=== PATIENT | female | born 1990 | race Caucasian/White ===

== ENCOUNTER → 2016-05-22 | Outpatient (REF) | payer OTHER ==
[~2016-05-22] MED LIST: ACET50TA PO; COLA100C PO; IBUP60TA PO; KEFL500C7 PO; MILKSUS PO; PERC5TAB6 PO; PERCOCET PO; PRE-TAB3 PO; RANITAB PO
== END ==
LOC: M LAB REF 09:16
PROVIDERS: ATTEND Physician Assistant
DX: J01.90 Acute sinusitis, unspecified (principal); J02.9 Acute pharyngitis, unspecified

== ENCOUNTER → 2016-08-09 | Outpatient (REF) | payer OTHER | LOC: M LAB REF 17:04 | PROVIDERS: ATTEND Advanced Practice Midwife | DX: Z12.4 Encounter for screening for malignant neoplasm of cervix (principal) ==

== ENCOUNTER → 2017-09-23 | Outpatient (CLI) | payer OTHER | LOC: M RAD 19:54 | DX: M54.14 Radiculopathy, thoracic region (principal) | CPT/HCPCS: 72072 ==

== ENCOUNTER → 2018-01-19 | Outpatient (CLI) | payer OTHER ==
[2018-01-19 17:37] LABS: BASO % 0.4 % (0.0-1.0); EOS # 0.1 10^3/uL (0.0-0.50); EOS % 0.9 % (0.0-3.0); HEMATOCRIT 37.1 % (36.0-47.0); HEMOGLOBIN 13.2 g/dl (12.0-15.5); IMMATURE GRANULOCYTE % 0.5 % (0-3.0); LYMPH # 1.7 10^3/uL (1.5-6.5); LYMPH % 21.4 % (24.0-44.0); MEAN CORPUSCULAR HEMOGLOBIN 31.1 pg (27.0-33.0); MEAN CORPUSCULAR HGB CONC 35.6 g/dl (32.0-36.5); MEAN CORPUSCULAR VOLUME 87.3 fl (80.0-96.0); MONO # 0.5 10^3/uL (0.0-0.8); MONO % 6.7 % (0.0-5.0); NEUTROPHILS # 5.6 10^3/uL (1.8-7.7); NEUTROPHILS % 70.1 % (36.0-66.0); PLATELET COUNT, AUTOMATED 180 10^3/uL (150-450); RED BLOOD COUNT 4.25 10^6/uL (4.00-5.40); RED CELL DISTRIBUTION WIDTH 11.7 % (11.5-14.5)
[2018-01-19 20:43] LABS: CHLAMYDIA DNA AMPLIFICATION NEGATIVE (NEGATIVE); GC DNA AMPLIFICATION NEGATIVE (NEGATIVE)
[2018-01-22 13:43] LABS: RUBELLA IgG QUALITATIVE IMMUNE (IMMUNE)
[2018-01-22 13:44] LABS: HBsAg Prenatal NEGATIVE (NEGATIVE)
[2018-01-22 14:08] LABS: HEPATITIS C VIRUS ABY INDEX 0.1 INDEX (<0.8)
[2018-01-24 18:29] LABS: HIV 1&2 SCREEN CENTAUR NEGATIVE (NEGATIVE)
== END ==
LOC: M WUC 15:19
DX: Z34.81 Encounter for supervision of other normal pregnancy, first trimester (principal); Z3A.08 8 weeks gestation of pregnancy
CPT/HCPCS: 86762

== ENCOUNTER → 2018-06-12 | Outpatient (REF) | payer OTHER ==
[~2018-06-12] MED LIST changes: -ACET50TA PO; -COLA100C PO; +COLA100C5 PO; +KEFL500C17 PO; -KEFL500C7 PO; +MAPA500T2 PO; +MILK120011 PO; -MILKSUS PO; +PERC5TAB12 PO; -PERC5TAB6 PO
[2018-06-12 15:07] LABS: APPEARANCE, URINE HAZY (CLEAR); BACTERIA, URINE AUTO NEGATIVE (NEGATIVE); BILIRUBIN, URINE AUTO NEGATIVE (NEGATIVE); BLOOD, URINE BLOOD NEGATIVE (NEGATIVE); COLOR, URINE YELLOW (YELLOW); GLUCOSE, URINE (UA) AUTO NEGATIVE (NEGATIVE); KETONE, URINE AUTO NEGATIVE (NEGATIVE); LEUKOCYTE ESTERASE, URINE AUTO 3+ (NEGATIVE); MUCUS, URINE SMALL (NEGATIVE); NITRITE, URINE AUTO NEGATIVE (NEGATIVE); PROTEIN, URINE AUTO NEGATIVE (NEGATIVE); RBC, URINE AUTO 0 /HPF (0-3); SPECIFIC GRAVITY URINE AUTO 1.013 (1.002-1.035); SQUAMOUS EPITHELIAL CELL UR AU 2 /HPF (0-6); UROBILINOGEN, URINE AUTO 0.2 mg/dL (0.0-2.0); WBC, URINE AUTO 1 /HPF (0-3)
== END ==
LOC: M LAB REF 13:40
PROVIDERS: ATTEND Obstetrics & Gynecology
DX: M54.5 Low back pain (principal)

== ENCOUNTER → 2018-07-19 | Outpatient (CLI) | payer OTHER ==
[~2018-07-19] MED LIST changes: +PANT20TA2 PO
--- NOTE | 2018-07-19 18:21 | REP ---
Clinical: Growth evaluation. Comparison: None . Findings: Examination demonstrates a single live intrauterine in cephalic presentation. motion is identified by technologist. Placenta is noted anterior and grade grade III without evidence for placenta previa or abruption. Amniotic fluid volume is normal. Cervix measures 3.5 cm in length and appears closed. No evidence for nuchal cord. Gestational age by LMP 35 weeks 5 days with REEMA 08/18/2018 . Gestational age by current measurements 38 weeks 6 days with RE[facility] 07/27/2018 . FHR equals 147 beats per minute. BPD 9.5 cm 38 weeks 4 days HC 34.1 cm 39 weeks 2 days AC 36.9 cm 40 weeks 6 days FL 7.4 cm 37 weeks 5 days HL 6.6 cm 38 weeks 1 day HC/AC ratio 0.92 Estimated weight 3871 grams ( greater than 97th percentile). Amniotic fluid index: 18.1 cm Umbilical cord SD ratio: 2.35 Impression: 1. Single live advanced gestation in cephalic presentation demonstrating greater than expected growth when compared to LMP. 2. Incidental small bilateral hydroceles may warrant ultrasound evaluation. Electronically Signed by Pancho Cespedes MD 07/19/2018 06:13 P
== END ==
LOC: M RAD 10:45
PROVIDERS: ATTEND Advanced Practice Midwife
DX: O26.843 Uterine size-date discrepancy, third trimester (principal); O24.410 Gestational diabetes mellitus in pregnancy, diet controlled; Z3A.38 38 weeks gestation of pregnancy

== ENCOUNTER → 2018-07-20 | Outpatient (REF) | payer OTHER | LOC: M LAB REF 16:55 | PROVIDERS: ATTEND Advanced Practice Midwife | DX: O24.410 Gestational diabetes mellitus in pregnancy, diet controlled (principal); Z3A.36 36 weeks gestation of pregnancy ==

== ENCOUNTER → 2018-07-24 | Outpatient (CLI) | payer OTHER ==
[~2018-07-24] MED LIST changes: +IBUP1TAB7 PO; +OXYC1TAB23 PO; +RANI15TA PO
== END ==
LOC: M WUC 16:32
PROVIDERS: ATTEND Advanced Practice Midwife
DX: O24.410 Gestational diabetes mellitus in pregnancy, diet controlled (principal); Z3A.36 36 weeks gestation of pregnancy

== ENCOUNTER 2018-08-03 05:19 | Inpatient (IN) | payer OTHER ==
[2018-08-03] VITALS (12 sets, daily range): BP systolic 103–126; BP diastolic 49–82
[~2018-08-03] VITALS: Ht 167.6 cm; Wt 95.5 kg
[~2018-08-03 05:19] MED LIST changes: -IBUP1TAB7 PO; -OXYC1TAB23 PO; -RANI15TA PO
[2018-08-03] MEDS ORDERED: RANI15TA PO (05:47)
[2018-08-03] MEDS ORDERED: BICITRA 30ML SOLN UDC PO ONE (06:00)
[2018-08-03] MEDS ORDERED: LR 800 ML IV ONE (06:00)
[2018-08-03 06:28] LABS: HEMOGLOBIN 11.8 g/dl (12.0-15.5); MEAN CORPUSCULAR HEMOGLOBIN 28.6 pg (27.0-33.0); MEAN CORPUSCULAR HGB CONC 33.7 g/dl (32.0-36.5); MEAN CORPUSCULAR VOLUME 84.7 fl (80.0-96.0); PLATELET COUNT, AUTOMATED 156 10^3/uL (150-450); RED BLOOD COUNT 4.13 10^6/uL (4.00-5.40); WHITE BLOOD COUNT 10.6 10^3/uL (4.0-10.0)
[2018-08-03] MEDS ORDERED: LR 1,000 ML IV SCH ×2 (07:00→09:15)
[2018-08-03] MEDS ORDERED: ONDANSETRON 4MG/2ML VIAL (J2405) As Ordered ONE (07:01)
[2018-08-03] MEDS ORDERED: BUPIVACAINE/DEXTROSE 0.75% 2 ML AMP As Ordered ONE (07:01)
[2018-08-03] MEDS ORDERED: MORPHINE PRES-FREE INJ 10 MG/10 ML VIAL (J2274) As Ordered ONE (07:02)
[2018-08-03] MEDS ORDERED: fentaNYL 100 MCG/2 ML INJECTION (J3010) As Ordered ONE (07:02)
[2018-08-03] MEDS ORDERED: OXYTOCIN INJ 10 UNITS/ML VIAL (J2590) As Ordered ONE (07:02)
[2018-08-03] MEDS ORDERED: KETOROLAC 60 MG/2 ML VIAL (J1885) As Ordered ONE (07:05)
[2018-08-03] MEDS ORDERED: diphenhydrAMINE INJ 50MG/ML VIAL (J1200) IV PRN (07:45)
[2018-08-03] MEDS ORDERED: NALOXONE INJ 0.4 MG/1 ML VIAL (J2310) IV PRN ×2 (07:45)
[2018-08-03] MEDS ORDERED: NALBUPHINE HCL 10 MG/ML AMP (J2300) IV PRN (07:45)
[2018-08-03] MEDS ORDERED: METOCLOPRAMIDE INJ 10MG/2ML VIAL (J2765) IV PRN (07:45)
[2018-08-03] MEDS ORDERED: ONDANSETRON 4MG/2ML VIAL (J2405) IV PRN ×3 (07:45→09:15)
[2018-08-03] MEDS ORDERED: ACETAMINOPHEN 1000MG 100ML IV BTL (OFIRMEV) (J0131 PER 10MG) As Ordered ONE (08:08)
[2018-08-03] MEDS ORDERED: OXYTOCIN DRIP 30 UNITS in APPROPRIATE DILUENT 1 EA IV SCH (08:47)
[2018-08-03] MEDS ORDERED: OXYC1TAB23 PO (08:55)
[2018-08-03] MEDS ORDERED: IBUP1TAB7 PO (08:56)
[2018-08-03] MEDS ORDERED: OXYTOCIN 30 UNITS IN 0.9% NaCl 500ML IV BAG (J2590) As Ordered ONE (08:59)
[2018-08-03] MEDS ORDERED: RHOGAM 300 MCG (1500 IU) INJ (J2790) IM SCH (09:00)
[2018-08-03] MEDS ORDERED: MEASLES,MUMPS,RUBELLA VACCINE INJ (MMR-II) (90707) SC SCH (09:00)
[2018-08-03] MEDS ORDERED: PERCOCET 5MG/325MG TAB PO PRN ×2 (09:00→09:15)
[2018-08-03] MEDS: PRENATAL VITAMINS CHEWABLE TABLET PO SCH (09:00)
[2018-08-03] MEDS ORDERED: fentaNYL 100 MCG/2 ML INJECTION (J3010) IV PRN (09:15)
--- NOTE | 2018-08-03 12:09 | RO ---
DATE OF PROCEDURE: 08/03/2018 PREPROCEDURE DIAGNOSIS: 38 and 1/7 weeks gestation, gestational diabetes, suspected macrosomia, undesired fertility. POSTPROCEDURE DIAGNOSIS: 38 and 1/7 weeks gestation, gestational diabetes, suspected macrosomia, undesired fertility. PROCEDURE: Primary low transverse section and bilateral tubal ligation. SURGEON: Dr. Chaim Aguilar ELECTRICAL AND RADIO MECHANIC: Dr. Sony Syed ANESTHESIA: Spinal. ESTIMATED BLOOD LOSS: 600 mL. IV FLUIDS: 1500 mL lactated Ringer's. URINE OUTPUT: 150 mL. FINDINGS: 4720 gram or 10 pound and 6 ounce male , Apgars 9 and 9, vertex position, nuchal cord times one. Normal uterus, fallopian tubes and ovaries. DESCRIPTION OF PROCEDURE: The patient was taken to the operating room where spinal anesthesia was induced. She was prepped and draped in sterile fashion in the supine position. A Cha catheter was placed. A Pfannenstiel skin incision was made with the scalpel and carried through to the fascia. The fascia was nicked and extended. The fascia was dissected off the rectus muscles. The rectus muscles were divided and the peritoneal cavity was entered. A bladder flap was created. A curvilinear incision was made in the lower uterine segment until bulging membranes were noted. This was extended manually. Membranes were ruptured with clear fluid noted. The was delivered from the vertex position with a single use of the vacuum extractor. Nuchal cord was reduced. The shoulders delivered with ease. The cord was doubly clamped and cut. The infant was handed off to the awaiting nurses. The placenta was expressed. The uterus was exteriorized and cleared of clots and debris. The uterine incision was closed with #0 Vicryl in a running locked fashion. A second imbricating layer of #0 Vicryl was placed. The uterus was placed back in the abdominal cavity. Attention was turned to the fallopian tubes. The fallopian tubes were grasped with the Linda clamp at their mid portion. A window was created in the broad ligament. A free tie #3-0 chromic was placed on either side of the [place] clamp. A knuckle of tube was excised bilaterally and sent to pathology. The uterus was placed back in the abdominal cavity. The peritoneum was closed with #2-0 Vicryl in a running locked fashion. The fascia was closed with #0 Vicryl in a running fashion. The deep layer was irrigated and closed with #2-0 chromic. The skin was closed with #4-0 Monocryl subcuticular suture. Sponge, needle and instrument counts were correct. Sony Syed DO, assisted with all aspects of the procedure from beginning to end. He helped create all layers the incision in the abdomen. He helped create the hysterotomy as well as expel the fetus. He subsequently helped closed all layers.
[2018-08-03] MEDS: LR 1,000 ML IV SCH ×2 (12:21→16:47)
[2018-08-03] MEDS: KETOROLAC 30 MG/ML VIAL (J1885) IV SCH ×2 (12:34→19:36)
[2018-08-03] MEDS: PERCOCET 5MG/325MG TAB PO PRN ×2 (14:21→21:27)
[2018-08-04] MEDS: KETOROLAC 30 MG/ML VIAL (J1885) IV SCH (00:21)
[2018-08-04 02:00] VITALS: BP 107/52
[2018-08-04 06:00] VITALS: BP 119/56
[2018-08-04 06:46] LABS: HEMATOCRIT 27.9 % (36.0-47.0); MEAN CORPUSCULAR HEMOGLOBIN 28.5 pg (27.0-33.0); MEAN CORPUSCULAR HGB CONC 33.7 g/dl (32.0-36.5); MEAN CORPUSCULAR VOLUME 84.5 fl (80.0-96.0); PLATELET COUNT, AUTOMATED 124 10^3/uL (150-450); WHITE BLOOD COUNT 8.8 10^3/uL (4.0-10.0)
[2018-08-04 06:58] LABS: HEMOGLOBIN 9.4 g/dl (12.0-15.5)
[2018-08-04] MEDS: PRENATAL VITAMINS CHEWABLE TABLET PO SCH (09:45)
[2018-08-04] MEDS: IBUPROFEN 800 MG TAB PO SCH ×2 (09:45→17:01)
[2018-08-04 10:27] VITALS: BP 110/54
[2018-08-04 14:24] VITALS: BP 120/58
[2018-08-04] MEDS: PERCOCET 5MG/325MG TAB PO PRN ×2 (14:32→22:23)
[2018-08-04] MEDS: DOCUSATE SODIUM 100 MG CAP PO PRN ×2 (17:03→17:11)
[2018-08-04 18:09] VITALS: BP 113/61
[2018-08-04 22:00] VITALS: BP 116/57
[2018-08-05] MEDS: IBUPROFEN 800 MG TAB PO SCH ×2 (01:01→08:03)
[2018-08-05 02:00] VITALS: BP 123/57
[2018-08-05 06:00] VITALS: BP 108/55
[2018-08-05] MEDS: PRENATAL VITAMINS CHEWABLE TABLET PO SCH (08:04)
--- NOTE | 2018-08-06 03:57 | DSES ---
DATE OF ADMISSION: 08/03/2018 DATE OF DISCHARGE: 08/05/2018 A 28-year-old (G) 2, para (P) 1 female at 38-1/7 weeks gestation presents for primary elective section due to suspected macrosomia and type A1 gestational diabetes mellitus. The patient had a shoulder dystocia with a prior large for gestational age baby and had a vaginal delivery. HOSPITAL COURSE: On 08/03/2018 the patient was admitted for a primary low transverse section and bilateral tubal ligation. The result was a 10 pounds, 6 ounce male . The procedure was without complication. POSTOPERATIVE COURSE: The postoperative course was unremarkable. She had adequate return of bladder and bowel function. Her postoperative hemoglobin is 9.6 g/deciliter. She is deemed stable for discharge on postoperative day number two. ADMISSION DIAGNOSES: 38 weeks, A1 gestational diabetes mellitus, macrosomia. DISCHARGE DIAGNOSIS: Delivered. PROCEDURE: Primary low transverse section and bilateral tubal ligation. DISPOSITION: The patient will follow up with Dr. Aguilar in two weeks. Instructions were reviewed.
== END 2018-08-05 11:10 | disposition home or self-care (01) | DRG 785 ==
LOC: M LDI 05:19 → M OBS 11:49
PROVIDERS: ADMIT Specialist; ATTEND Specialist
PROC: 0UB70ZZ Excision of Bilateral Fallopian Tubes, Open Approach (ICD-10-PCS; 2018-08-03)
PROC: 10D00Z1 Extraction of Products of Conception, Low, Open Approach (ICD-10-PCS; principal; 2018-08-03 07:30)
DX: O36.63X0 Maternal care for excessive fetal growth, third trimester, not applicable or unspecified (principal); Z3A.38 38 weeks gestation of pregnancy; O24.420 Gestational diabetes mellitus in childbirth, diet controlled; Z37.0 Single live birth; Z30.2 Encounter for sterilization

== ENCOUNTER → 2019-10-16 | Outpatient (CLI) | payer OTHER ==
[~2019-10-16] MED LIST changes: +IBUP1TAB7 PO; +IBUP600T42 PO; -IBUP60TA PO; +OXYC1TAB23 PO; +RANI15TA PO
[2019-10-16 10:01] LABS: BASO % 0.4 % (0.0-1.0); EOS % 0.7 % (0.0-3.0); HEMATOCRIT 43.5 % (36.0-47.0); HEMOGLOBIN 14.7 g/dl (12.0-15.5); LYMPH # 1.3 10^3/uL (1.5-5.0); LYMPH % 28.3 % (24.0-44.0); MEAN CORPUSCULAR HEMOGLOBIN 30.5 pg (27.0-33.0); MEAN CORPUSCULAR HGB CONC 33.8 g/dl (32.0-36.5); MEAN CORPUSCULAR VOLUME 90.2 fl (80.0-96.0); MONO # 0.4 10^3/uL (0.0-0.8); MONO % 9.5 % (0.0-5.0); NEUTROPHILS # 2.8 10^3/uL (1.5-8.5); NEUTROPHILS % 60.7 % (36.0-66.0); PLATELET COUNT, AUTOMATED 210 10^3/uL (150-450); RED BLOOD COUNT 4.82 10^6/uL (4.00-5.40); WHITE BLOOD COUNT 4.5 10^3/uL (4.0-10.0)
[2019-10-16 10:04] LABS: AMORPHOUS SEDIMENT MODERATE (NEGATIVE); APPEARANCE, URINE CLOUDY (CLEAR); BACTERIA, URINE AUTO NEGATIVE (NEGATIVE); BILIRUBIN, URINE AUTO NEGATIVE (NEGATIVE); BLOOD, URINE BLOOD 3+ (NEGATIVE); COLOR, URINE AMBER (YELLOW); GLUCOSE, URINE (UA) AUTO NEGATIVE (NEGATIVE); KETONE, URINE AUTO NEGATIVE (NEGATIVE); LEUKOCYTE ESTERASE, URINE AUTO NEGATIVE (NEGATIVE); NITRITE, URINE AUTO NEGATIVE (NEGATIVE); PROTEIN, URINE AUTO NEGATIVE (NEGATIVE); RBC, URINE AUTO TNTC /HPF (0-3); SPECIFIC GRAVITY URINE AUTO 1.011 (1.002-1.035); SQUAMOUS EPITHELIAL CELL UR AU 0 /HPF (0-6); UROBILINOGEN, URINE AUTO 0.2 mg/dL (0.0-2.0); WBC, URINE AUTO 0 /HPF (0-3)
[2019-10-16 10:42] LABS: ALBUMIN 4.3 GM/DL (3.2-5.2); ALT/SGPT 29 U/L (12-78); BILIRUBIN,TOTAL 0.9 MG/DL (0.2-1.0); BLOOD UREA NITROGEN 16 MG/DL (7-18); CALCIUM LEVEL 9.4 MG/DL (8.5-10.1); CARBON DIOXIDE LEVEL 29 MEQ/L (21-32); CHLORIDE LEVEL 103 MEQ/L (98-107); CREATININE FOR GFR 0.62 MG/DL (0.55-1.30); GLOMERULAR FILTRATION RATE > 60.0 (>60); GLUCOSE, FASTING 86 MG/DL (70-100); POTASSIUM SERUM 4.4 MEQ/L (3.5-5.1); SODIUM LEVEL 139 MEQ/L (136-145); TOTAL PROTEIN 7.3 GM/DL (6.4-8.2)
== END ==
LOC: M LAB 09:09
PROVIDERS: ATTEND Family Medicine
DX: R10.12 Left upper quadrant pain (principal)

== ENCOUNTER → 2019-11-04 | Outpatient (REF) | payer OTHER ==
[2019-11-04 19:02] LABS: APPEARANCE, URINE CLEAR (CLEAR); BACTERIA, URINE AUTO NEGATIVE (NEGATIVE); BILIRUBIN, URINE AUTO NEGATIVE (NEGATIVE); BLOOD, URINE BLOOD NEGATIVE (NEGATIVE); COLOR, URINE STRAW (YELLOW); GLUCOSE, URINE (UA) AUTO NEGATIVE (NEGATIVE); KETONE, URINE AUTO NEGATIVE (NEGATIVE); LEUKOCYTE ESTERASE, URINE AUTO TRACE (NEGATIVE); MUCUS, URINE SMALL (NEGATIVE); NITRITE, URINE AUTO NEGATIVE (NEGATIVE); PROTEIN, URINE AUTO NEGATIVE (NEGATIVE); RBC, URINE AUTO 0 /HPF (0-3); SPECIFIC GRAVITY URINE AUTO 1.006 (1.002-1.035); SQUAMOUS EPITHELIAL CELL UR AU 0 /HPF (0-6); UROBILINOGEN, URINE AUTO 0.2 mg/dL (0.0-2.0); WBC, URINE AUTO 0 /HPF (0-3)
== END ==
LOC: M SMT 16:38
PROVIDERS: ATTEND Nurse Practitioner Women's Health
DX: N20.0 Calculus of kidney (principal)

== ENCOUNTER → 2019-12-20 | Outpatient (CLI) | payer OTHER ==
[~2019-12-20] MED LIST changes: -PANT20TA2 PO; +PANT20TA6 PO
--- NOTE | 2020-02-07 09:55 | REP ---
PELVIC ULTRASOUND HISTORY: Left lower quadrant pain. TECHNIQUE: Real-time sonographic evaluation of pelvis performed utilizing transabdominal and endovaginal technique. FINDINGS: Bladder measures 14.9 x 6.5 x 10.3 cm. Uterus measures 10.1 x 4.1 x 5.6 cm. Endometrial thickness is 16 mm. No endometrial fluid collection is seen. Ovaries appear normal in size and echotexture. Right ovary measuring 3.7 x 2.3 x 1.8 cm and the left ovary 2.8 x 1.9 x 2.3 cm. Normal size follicles are seen in each ovary with no evidence of adnexal mass or free fluid. There is no evidence of ovarian torsion with duplex Doppler evaluation. IMPRESSION: Unremarkable pelvic ultrasound MTDD
== END ==
LOC: M RAD 15:30
PROVIDERS: ATTEND Nurse Practitioner Family
DX: R10.32 Left lower quadrant pain (principal); M54.5 Low back pain

== ENCOUNTER → 2020-04-28 | Outpatient (CLI) | payer OTHER ==
[2020-04-28 07:50] LABS: BASO % 0.7 % (0.0-1.0); EOS # 0.1 10^3/uL (0.0-0.5); EOS % 1.8 % (0.0-3.0); HEMATOCRIT 42.5 % (36.0-47.0); HEMOGLOBIN 14.5 g/dl (12.0-15.5); LYMPH # 1.3 10^3/uL (1.5-5.0); LYMPH % 29.7 % (24.0-44.0); MEAN CORPUSCULAR HEMOGLOBIN 30.3 pg (27.0-33.0); MEAN CORPUSCULAR HGB CONC 34.1 g/dl (32.0-36.5); MEAN CORPUSCULAR VOLUME 88.9 fl (80.0-96.0); MONO # 0.3 10^3/uL (0.0-0.8); NEUTROPHILS # 2.7 10^3/uL (1.5-8.5); NEUTROPHILS % 60.6 % (36.0-66.0); PLATELET COUNT, AUTOMATED 205 10^3/uL (150-450); RED BLOOD COUNT 4.78 10^6/uL (4.00-5.40); WHITE BLOOD COUNT 4.5 10^3/uL (4.0-10.0)
[2020-04-28 08:39] LABS: ALBUMIN 3.9 GM/DL (3.2-5.2); ALT/SGPT 24 U/L (12-78); BILIRUBIN,TOTAL 0.5 MG/DL (0.2-1.0); BLOOD UREA NITROGEN 14 MG/DL (7-18); CALCIUM LEVEL 8.8 MG/DL (8.5-10.1); CARBON DIOXIDE LEVEL 27 MEQ/L (21-32); CHLORIDE LEVEL 110 MEQ/L (98-107); CREATININE FOR GFR 0.66 MG/DL (0.55-1.30); FREE T4 1.05 NG/DL (0.76-1.46); GLOMERULAR FILTRATION RATE > 60.0 (>60); GLUCOSE, FASTING 96 MG/DL (70-100); POTASSIUM SERUM 4.3 MEQ/L (3.5-5.1); SODIUM LEVEL 142 MEQ/L (136-145); TOTAL PROTEIN 6.6 GM/DL (6.4-8.2)
== END ==
LOC: M LAB 07:07
PROVIDERS: ATTEND Physician Assistant
DX: Z13.29 Encounter for screening for other suspected endocrine disorder (principal)

== ENCOUNTER → 2020-09-11 | Outpatient (REF) | payer OTHER | LOC: M SFHCWAGY 09:52 | PROVIDERS: ATTEND Advanced Practice Midwife | DX: Z12.4 Encounter for screening for malignant neoplasm of cervix (principal) ==

== ENCOUNTER → 2020-09-15 | Outpatient (CLI) | payer OTHER | LOC: M LAB 06:59 | PROVIDERS: ATTEND Advanced Practice Midwife | DX: Z13.79 Encounter for other screening for genetic and chromosomal anomalies (principal) ==

== ENCOUNTER → 2021-01-01 | Outpatient (REF) | LOC: M LABSMTC 10:26 | PROVIDERS: ATTEND Pediatrics | DX: Z11.52 Encounter for screening for COVID-19 (principal) ==

== ENCOUNTER → 2021-08-06 | Outpatient (CLI) | payer OTHER | LOC: M WHC 09:44 | PROVIDERS: ATTEND Physician Assistant | DX: Z80.3 Family history of malignant neoplasm of breast (principal) ==

== ENCOUNTER → 2021-11-16 | Outpatient (CLI) | payer OTHER ==
[2021-11-16 12:23] LABS: BASO # 0.1 10^3/uL (0.0-0.2); BASO % 0.7 % (0.0-1.0); EOS % 0.4 % (0.0-3.0); HEMATOCRIT 41.4 % (36.0-47.0); HEMOGLOBIN 13.8 g/dl (12.0-15.5); LYMPH # 1.5 10^3/uL (1.5-5.0); LYMPH % 20.3 % (24.0-44.0); MEAN CORPUSCULAR HEMOGLOBIN 29.1 pg (27.0-33.0); MEAN CORPUSCULAR HGB CONC 33.3 g/dl (32.0-36.5); MEAN CORPUSCULAR VOLUME 87.3 fl (80.0-96.0); MONO # 0.6 10^3/uL (0.0-0.8); MONO % 8.2 % (2.0-8.0); NEUTROPHILS # 5.3 10^3/uL (1.5-8.5); NEUTROPHILS % 70.1 % (36.0-66.0); PLATELET COUNT, AUTOMATED 225 10^3/uL (150-450); RED BLOOD COUNT 4.74 10^6/uL (4.00-5.40); WHITE BLOOD COUNT 7.6 10^3/uL (4.0-10.0)
[2021-11-16 12:41] LABS: ALBUMIN 4.4 GM/DL (3.2-5.2); ALT/SGPT 19 U/L (12-78); BILIRUBIN,TOTAL 0.5 MG/DL (0.2-1.0); BLOOD UREA NITROGEN 7 MG/DL (7-18); CALCIUM LEVEL 9.3 MG/DL (8.5-10.1); CARBON DIOXIDE LEVEL 30 MEQ/L (21-32); CHLORIDE LEVEL 106 MEQ/L (98-107); CHOLESTEROL LEVEL 168 MG/DL (<200); CHOLESTEROL RISK RATIO 2.709 (<5); CREATININE FOR GFR 0.66 MG/DL (0.55-1.30); GLOMERULAR FILTRATION RATE > 60.0 (>60); GLUCOSE, FASTING 72 MG/DL (70-100); HDL CHOLESTEROL 62 MG/DL (>40); LDL CHOLESTEROL 87 MG/DL (<100); NON-HDL-C 106 MG/DL; POTASSIUM SERUM 3.8 MEQ/L (3.5-5.1); SODIUM LEVEL 141 MEQ/L (136-145); TRIGLYCERIDES LEVEL 96 MG/DL (<150)
== END ==
LOC: M LAB 11:50
PROVIDERS: ATTEND Physician Assistant
DX: Z13.220 Encounter for screening for lipoid disorders (principal)

== ENCOUNTER → 2022-01-12 | Outpatient (RCR) | payer OTHER ==
[~2022-01-12] MED LIST changes: +NAPR-885; +TIZA10TA
== END ==
LOC: M PT 12-14 07:02 → MERGE 12-30 07:00 → M PT 12-30 07:00
PROVIDERS: ATTEND Physician Assistant
DX: M54.6 Pain in thoracic spine (principal)

== ENCOUNTER → 2022-02-08 | Outpatient (CLI) | payer OTHER ==
[~2022-02-08] MED LIST changes: +PROHANCE 279.3MG/ML 15ML VIAL ONE
== END ==
LOC: M PLAIMG 12:30
PROVIDERS: ATTEND Nurse Practitioner Women's Health
DX: R92.8 Other abnormal and inconclusive findings on diagnostic imaging of breast (principal); Z15.01 Genetic susceptibility to malignant neoplasm of breast; Z80.3 Family history of malignant neoplasm of breast; Z91.89 Other specified personal risk factors, not elsewhere classified
CPT/HCPCS: A9576; C8908

== ENCOUNTER → 2022-03-10 | Outpatient (CLI) | payer OTHER ==
[~2022-03-10] MED LIST changes: -PROHANCE 279.3MG/ML 15ML VIAL ONE; +SERT150C PO
== END ==
LOC: M LABSMTC 09:47
PROVIDERS: ATTEND Anesthesiology
DX: Z01.812 Encounter for preprocedural laboratory examination (principal); Z11.52 Encounter for screening for COVID-19

== ENCOUNTER 2022-03-15 06:39 | Day surgery (SDC) | payer OTHER ==
[~2022-03-15] VITALS: Ht 167.6 cm; Wt 81.2 kg
[~2022-03-15 06:39] MED LIST changes: +NS 1,000 ML IV ONE
[2022-03-15] MEDS ORDERED: propofoL 200 MG/20 ML VIAL As Ordered ONE ×2 (06:47→06:53)
[2022-03-15] MEDS ORDERED: LIDOCAINE 2% 100MG/5ML SDV (FOR ANES.) As Ordered ONE (06:51)
[2022-03-15] MEDS ORDERED: GLYCOPYRROLATE INJ 0.2 MG/ML 2 ML VIAL As Ordered ONE (06:55)
[2022-03-15 08:30] VITALS: BP 97/53
== END 2022-03-15 08:48 | disposition home or self-care (01) ==
LOC: M OPP 06:39
PROVIDERS: ATTEND Internal Medicine Gastroenterology
DX: Z12.11 Encounter for screening for malignant neoplasm of colon (principal); Z15.09 Genetic susceptibility to other malignant neoplasm; K64.4 Residual hemorrhoidal skin tags; K64.8 Other hemorrhoids; Z79.1 Long term (current) use of non-steroidal anti-inflammatories (NSAID); Z79.899 Other long term (current) drug therapy; F32.9 Major depressive disorder, single episode, unspecified; F41.9 Anxiety disorder, unspecified; Z87.442 Personal history of urinary calculi; Z87.891 Personal history of nicotine dependence

== ENCOUNTER → 2022-08-08 | Outpatient (CLI) | payer OTHER ==
[~2022-08-08] MED LIST changes: -NS 1,000 ML IV ONE
== END ==
LOC: M WHC 07:48
PROVIDERS: ATTEND Nurse Practitioner Women's Health
DX: R92.2 Inconclusive mammogram (principal); Z15.01 Genetic susceptibility to malignant neoplasm of breast; Z80.3 Family history of malignant neoplasm of breast; Z91.89 Other specified personal risk factors, not elsewhere classified

== ENCOUNTER → 2023-12-01 | Outpatient (REF) | payer OTHER ==
[2023-12-05 14:57] LABS: HPV APTIMA Not Detected (Not Detected)
== END ==
LOC: M SFHCWAGY 13:09
PROVIDERS: ATTEND Advanced Practice Midwife
DX: Z12.4 Encounter for screening for malignant neoplasm of cervix (principal)
CPT/HCPCS: 87624; G0123

== ENCOUNTER 2024-03-08 17:07 | Emergency (ER) | payer OTHER ==
[~2024-03-08] VITALS: Ht 167.6 cm; Wt 72.7 kg
[2024-03-08] MEDS: ONDANSETRON 4MG ORAL DISINTEGRATING TAB PO ONE (19:09)
[2024-03-08 19:18] LABS: BASO % 0.2 % (0.0-1.0); EOS % 0.1 % (0.0-3.0); HEMATOCRIT 37.6 % (36.0-47.0); HEMOGLOBIN 13.1 g/dl (12.0-15.5); LYMPH # 1.4 10^3/uL (1.5-5.0); LYMPH % 16.1 % (24.0-44.0); MEAN CORPUSCULAR HEMOGLOBIN 30.9 pg (27.0-33.0); MEAN CORPUSCULAR HGB CONC 34.8 g/dl (32.0-36.5); MEAN CORPUSCULAR VOLUME 88.7 fl (80.0-96.0); MONO # 0.6 10^3/uL (0.0-0.8); MONO % 6.9 % (2.0-8.0); NEUTROPHILS # 6.4 10^3/uL (1.5-8.5); NEUTROPHILS % 76.3 % (36.0-66.0); PLATELET COUNT, AUTOMATED 233 10^3/uL (150-450); RED BLOOD COUNT 4.24 10^6/uL (4.00-5.40); WHITE BLOOD COUNT 8.4 10^3/uL (4.0-10.0)
[2024-03-08 19:42] LABS: AMPHETAMINES LEVEL URINE NEGATIVE (NEGATIVE); BARBITURATES URINE NEGATIVE (NEGATIVE); BENZODIAZEPINES URINE NEGATIVE (NEGATIVE); COCAINE METABOLITE URINE NEGATIVE (NEGATIVE); METHADONE URINE NEGATIVE (NEGATIVE); OPIATES URINE NEGATIVE (NEGATIVE)
[2024-03-08 19:43] LABS: PHENCYCLIDINE URINE NEGATIVE (NEGATIVE)
[2024-03-08 19:44] LABS: CANNABINOIDS URINE POSITIVE (NEGATIVE)
[2024-03-08 19:48] LABS: ALBUMIN 4.1 G/DL (3.2-5.2); ALKALINE PHOSPHATASE 48 U/L (35-104); ALT/SGPT 30 U/L (7.0-40); AST/SGOT 16 U/L (<34); BILIRUBIN,DIRECT 0.1 MG/DL (<0.4); BILIRUBIN,TOTAL 0.3 MG/DL (0.3-1.2); BLOOD UREA NITROGEN 9 MG/DL (9-23); CALCIUM LEVEL 9.8 MG/DL (8.5-10.1); CARBON DIOXIDE LEVEL 26 MMOL/L (20-31); CHLORIDE LEVEL 111 MMOL/L (98-107); CREATININE FOR GFR 0.64 MG/DL (0.55-1.30); GLOMERULAR FILTRATION RATE > 60.0 (>60); GLUCOSE, FASTING 92 MG/DL (60-100); POTASSIUM SERUM 3.8 MMOL/L (3.5-5.1); SODIUM LEVEL 143 MMOL/L (136-145); TOTAL PROTEIN 6.8 G/DL (5.7-8.2)
[2024-03-08 19:49] LABS: THYROID STIMULATING HORMONE 3.236 uIU/ML (0.55-4.78)
[2024-03-08 19:50] LABS: FREE T4 1.62 NG/DL (0.89-1.76)
[2024-03-08 20:00] LABS: HCG, SERUM QUALITATIVE NEGATIVE (NEGATIVE)
[2024-03-08 20:15] LABS: RSV AMPLIFICATION NEGATIVE (NEGATIVE)
[2024-03-08 20:51] VITALS: BP 133/60; TEMP 97.8; O2SAT 98
== END 2024-03-08 20:53 | disposition home or self-care (01) ==
LOC: M ED 17:07
DX: R55 Syncope and collapse (principal); I45.10 Unspecified right bundle-branch block; F41.9 Anxiety disorder, unspecified; F32.A Depression, unspecified; F12.10 Cannabis abuse, uncomplicated; Z79.1 Long term (current) use of non-steroidal anti-inflammatories (NSAID); Z79.899 Other long term (current) drug therapy

== ENCOUNTER → 2024-12-04 | Outpatient (CLI) | payer OTHER ==
[2024-12-04 08:57] LABS: BASO # 0.0 10^3/uL (0.0-0.2); BASO % 0.6 % (0.0-1.0); EOS # 0.1 10^3/uL (0.0-0.5); EOS % 1.6 % (0.0-3.0); LYMPH # 1.4 10^3/uL (1.5-5.0); LYMPH % 27.7 % (24.0-44.0); MONO # 0.3 10^3/uL (0.0-0.8); MONO % 6.9 % (2.0-8.0); NEUTROPHILS # 3.1 10^3/uL (1.5-8.5); NEUTROPHILS % 63.0 % (36.0-66.0); PLATELET COUNT, AUTOMATED 189 10^3/uL (150-450)
[2024-12-04 09:18] LABS: FREE T4 1.16 NG/DL (0.89-1.76)
[2024-12-04 09:20] LABS: ALT/SGPT 24 U/L (7.0-40); AST/SGOT 18 U/L (<34); CALCIUM LEVEL 9.1 MG/DL (8.5-10.1); CARBON DIOXIDE LEVEL 29 MMOL/L (20-31); CHLORIDE LEVEL 106 MMOL/L (98-107); CHOLESTEROL LEVEL 133 MG/DL (<200); CHOLESTEROL RISK RATIO 2.79 (<5); CREATININE FOR GFR 0.68 MG/DL (0.55-1.30); GLOMERULAR FILTRATION RATE > 90.0 (>60); LDL CHOLESTEROL 70.0 MG/DL (<100); NON-HDL-C 85.4 MG/DL; POTASSIUM SERUM 4.5 MMOL/L (3.5-5.1); SODIUM LEVEL 143 MMOL/L (136-145); TRIGLYCERIDES LEVEL 77 MG/DL (<150)
[2024-12-04 09:25] LABS: ESTIMATED AVERAGE GLUCOSE 97.0 MG/DL (60-110)
== END ==
LOC: M LAB 07:36
PROVIDERS: ATTEND Physician Assistant
DX: Z13.29 Encounter for screening for other suspected endocrine disorder (principal); Z13.220 Encounter for screening for lipoid disorders

== ENCOUNTER → 2025-04-30 | Outpatient (CLI) | payer OTHER | LOC: M WHC 09:05 | PROVIDERS: ATTEND Physician Assistant | DX: Z12.31 Encounter for screening mammogram for malignant neoplasm of breast (principal) ==

== ENCOUNTER → 2025-04-30 | Outpatient (REF) | payer OTHER ==
[2025-05-02 13:56] LABS: HPV APTIMA Not Detected (Not Detected)
== END ==
LOC: M SFHCWAGY 13:48
PROVIDERS: ATTEND Physician Assistant
DX: Z01.419 Encounter for gynecological examination (general) (routine) without abnormal findings (principal); Z77.9 Other contact with and (suspected) exposures hazardous to health
CPT/HCPCS: 87624; G0123